=== PATIENT | female | born 1965 | race Caucasian/White ===

== ENCOUNTER 2018-08-11 09:47 | Emergency (ER) | payer OTHER, SELFPAY ==
[2018-08-11] MEDS ORDERED: IPRATROPIUM BROM 0.5MG/2.5ML ONE (10:29)
[2018-08-11] MEDS ORDERED: ALBUTEROL 2.5 MG/3 ML NEB SOL ONE (10:29)
[2018-08-11 10:59] LABS: BUN Blood Urea Nitrogen 9 mg/dL (7-18); Bicarbonate 27 mmol/L (21-32); Glucose Level 95 mg/dL (74-106); Potassium 3.9 mmol/L (3.5-5.1); Sodium Level 140 mmol/L (136-145)
[2018-08-11 11:00] LABS: Absolute Lymphocytes (CBC) 1.1 K/uL (0.7-4.9); Absolute Monocytes 0.9 K/uL (0.1-1.3); Absolute Neutrophil 4.7 K/uL (1.8-8.0); Basophils % 1.1 % (0-1.3); Eosinophils % 2.3 % (0-4.4); Hematocrit 42.4 % (36.0-45.0); MPV 9.9 fL (7.6-11.3); Monocytes % 13.4 % (3.3-12.3); RBC Red Blood Cell Count 4.53 M/uL (3.86-4.86)
--- NOTE | 2018-08-11 11:56 | RAD REPORT ---
EXAM DESCRIPTION: RAD - Chest Pa And Lat (2 Views) - 08/11/2018 11:48 am CLINICAL HISTORY: Dyspnea;Congestion;Fever Chest pain. COMPARISON: No comparisons TECHNIQUE: PA and lateral views of the chest were obtained. FINDINGS: The lungs are hyperexpanded compatible with COPD. The heart is upper limit of normal in si ze. No fracture or aggressive bony process. IMPRESSION: COPD without acute process identified.
--- NOTE | 2018-08-11 12:48 | ER ---
Nurse's Notes [facility] Name: Maria Del Carmen Darling Age: 53 yrs Sex: Female : 1965 Arrival Date: 08/11/2018 Time: 09:50 Bed 23 Private MD: None, None Diagnosis: Chronic obstructive pulmonary disease with acute lower respiratory infection Presentation: 08/11 09:55 Presenting complaint: Patient states: productive cough with clear sputum x 1 week ago. aa5 Pt also reports fever up to 102.0, reports taking Tylenol at 0730. Transition of care: patient was not received from another setting of care. Onset of symptoms was August 2018. Risk Assessment: Do you want to hurt yourself or someone else? Patient reports no desire to harm self or others. Care prior to arrival: None. 09:55 Method Of Arrival: Ambulatory aa5 09:55 Acuity: CHARANJIT 3 aa5 12:53 Initial Sepsis Screen: Does the patient meet any 2 criteria? No. Patient's initial aj sepsis screen is negative. Does the patient have a suspected source of infection? No. Patient's initial sepsis screen is negative. 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 - Social history:: Smoking status: Patient uses tobacco products, smokes one-half pack cigarettes per day. - Ebola Screening: : No symptoms or risks identified at this time. Screenin:30 Abuse screen: Denies threats or abuse. Denies injuries from another. Nutritional aj screening: No deficits noted. Tuberculosis screening: No symptoms or risk factors identified. Fall Risk None identified. Assessment: 10:30 General: Appears in no apparent distress. comfortable, Behavior is calm, cooperative, aj appropriate for age. Pain: Denies pain. Neuro: Level of Consciousness is awake, alert, obeys commands, Oriented to person, place, time, situation, Appropriate for age. Respiratory: Reports cough that is Airway is patent Respiratory effort is even, unlabored, Respiratory pattern is regular, symmetrical. Derm: Skin is intact, is healthy with good turgor, Skin is pink, warm \T\ dry. normal. 12:52 Reassessment: Patient appears in no apparent distress at this time. No changes from aj previously documented assessment. Patient and/or family updated on plan of care and expected duration. Pain level reassessed. Patient is alert, oriented x 3, equal unlabored respirations, skin warm/dry/pink. Patient states feeling better. Patient states symptoms have improved. Vital Signs: 09:57 BP 130 / 93; Pulse 106; Resp 18 S; Temp 99.2(O); Pulse Ox 96% on R/A; Weight 56.7 kg aa5 (R); Height 5 ft. 1 in. (154.94 cm) (R); Pain 8/10; 11:28 BP 101 / 65; Pulse 97; Resp 20; Pulse Ox 98% on R/A; aj 12:38 BP 104 / 66; Pulse 96; Resp 19; Pulse Ox 98% on R/A; aj 09:57 Body Mass Index 23.62 (56.70 kg, 154.94 cm) aa5 09:57 Pt c/o body aching aa5 ED Course: 09:50 Patient arrived in ED. mr 09:50 None, None is Private Physician. mr 09:56 Triage completed. aa5 09:56 Arm band placed on. aa5 09:58 Bisi German, RN is Primary Nurse. aj 10:06 Markell Simpson MD is Attending Physician. ma2 10:07 Satya Brandon PA is PHCP. jr8 10:30 Patient has correct armband on for positive identification. aj 10:30 Inserted saline lock: 20 gauge in right forearm, using aseptic technique. Blood aj collected. 10:34 Influenza Screen (a \T\ B) Sent. aj 10:34 Basic Metabolic Panel Sent. aj 10:34 CBC with Diff Sent. aj 11:49 XRAY Chest Pa And Lat (2 Views) In Process Unspecified. EDMS 12:52 No provider procedures requiring assistance completed. IV discontinued, intact, aj bleeding controlled, No redness/swelling at site. Pressure dressing applied. Administered Medications: 10:24 Drug: Albuterol 2.5 mg Route: Inhalation; aj 10:34 Follow up: Response: No adverse reaction; Marked relief of symptoms aj Outcome: 12:46 Discharge ordered by . brennan 12:52 Discharged to home ambulatory, with family. aj 12:52 Condition: good 12:52 Discharge instructions given to patient, family, Instructed on discharge instructions, follow up and referral plans. medication usage, Demonstrated understanding of instructions, follow-up care, medications, Prescriptions given X 3. 12:54 Patient left the ED. aj Signatures: Dispatcher [employer] EDBisi Irvin RN RN aj Rivera, Mary mr ClarkeCindi zhou RN RN aa5 Satya Brandon PA PA jr8 Markell Simpson MD MD ma2
--- NOTE | 2018-08-11 12:48 | EDPHYS ---
Physician Documentation [facility] Name: Maria Del Carmen Darling Age: 53 yrs Sex: Female : 1965 Arrival Date: 08/11/2018 Time: 09:50 Bed 23 Private MD: None, None ED Physician Markell Simpson HPI: 08/11 10:56 This 53 yrs old Female presents to ER via Ambulatory with complaints of jr8 Cough, Fever. 10:56 The patient or guardian reports cough, that is intermittent, described as moderate, jr8 with productive sputum, that is white, difficulty breathing. Onset: The symptoms/episode began/occurred acutely, 6 day(s) ago, and became worse. Severity of symptoms: At their worst the symptoms were moderate, in the emergency department the symptoms are unchanged. Modifying factors: The symptoms are alleviated by nothing, the symptoms are aggravated by nothing. Associated signs and symptoms: Pertinent positives: fever. The patient has not experienced similar symptoms in the past. The patient has not recently seen a physician. 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 - Social history:: Smoking status: Patient uses tobacco products, smokes one-half pack cigarettes per day. - Ebola Screening: : No symptoms or risks identified at this time. ROS: 10:56 Eyes: Negative for injury, pain, redness, and discharge, ENT: Negative for injury, jr8 pain, and discharge, Neck: Negative for injury, pain, and swelling, Cardiovascular: Negative for chest pain, palpitations, and edema, Abdomen/GI: Negative for abdominal pain, nausea, vomiting, diarrhea, and constipation, Back: Negative for injury and pain, MS/Extremity: Negative for injury and deformity, Skin: Negative for injury, rash, and discoloration, Neuro: Negative for headache, weakness, numbness, tingling, and seizure. 10:56 Respiratory: Positive for cough, with clear sputum, shortness of breath, wheezing. Exam: 10:56 Eyes: Pupils equal round and reactive to light, extra-ocular motions intact. Lids and jr8 lashes normal. Conjunctiva and sclera are non-icteric and not injected. Cornea within normal limits. Periorbital areas with no swelling, redness, or edema. ENT: Nares patent. No nasal discharge, no septal abnormalities noted. Tympanic membranes are normal and external auditory canals are clear. Oropharynx with no redness, swelling, or masses, exudates, or evidence of obstruction, uvula midline. Mucous membranes moist. Neck: Trachea midline, no thyromegaly or masses palpated, and no cervical lymphadenopathy. Supple, full range of motion without nuchal rigidity, or vertebral point tenderness. No Meningismus. Cardiovascular: Regular rate and rhythm with a normal S1 and S2. No gallops, murmurs, or rubs. Normal PMI, no JVD. No pulse deficits. Abdomen/GI: Soft, non-tender, with normal bowel sounds. No distension or tympany. No guarding or rebound. No evidence of tenderness throughout. Back: No spinal tenderness. No costovertebral tenderness. Full range of motion. Skin: Warm, dry with normal turgor. Normal color with no rashes, no lesions, and no evidence of cellulitis. MS/ Extremity: Pulses equal, no cyanosis. Neurovascular intact. Full, normal range of motion. Neuro: Awake and alert, GCS 15, oriented to person, place, time, and situation. Cranial nerves II-XII grossly intact. Motor strength 5/5 in all extremities. Sensory grossly intact. Cerebellar exam normal. Normal gait. 10:56 Respiratory: the patient does not display signs of respiratory distress, Respirations: normal, symetrical, no use of accessory muscles, no grunting, no evidence of nasal flaring, no prolonged exhalations, no pursed lip breathing, no retractions, no shallow respirations, no splinting, no tachypnea, Breath sounds: wheezing: expiratory that is mild, is heard in the left posterior upper lobe, left posterior lower lobe and right posterior lower lobe. Vital Signs: 09:57 BP 130 / 93; Pulse 106; Resp 18 S; Temp 99.2(O); Pulse Ox 96% on R/A; Weight 56.7 kg aa5 (R); Height 5 ft. 1 in. (154.94 cm) (R); Pain 8/10; 11:28 BP 101 / 65; Pulse 97; Resp 20; Pulse Ox 98% on R/A; aj 12:38 BP 104 / 66; Pulse 96; Resp 19; Pulse Ox 98% on R/A; aj 09:57 Body Mass Index 23.62 (56.70 kg, 154.94 cm) aa5 09:57 Pt c/o body aching aa5 MDM: 10:06 Patient medically screened. ma2 12:45 Data reviewed: vital signs, nurses notes, lab test result(s), radiologic studies, plain jr films, and as a result, I will discharge patient. Data interpreted: Pulse oximetry: on room air is 98 %. Interpretation: normal. Counseling: I had a detailed discussion with the patient and/or guardian regarding: the historical points, exam findings, and any diagnostic results supporting the discharge/admit diagnosis, lab results, radiology results, the need for outpatient follow up, a family practitioner, to return to the emergency department if symptoms worsen or persist or if there are any questions or concerns that arise at home. Response to treatment: the patient's symptoms have markedly improved after treatment. 08/11 10:16 Order name: CBC with Diff; Complete Time: 11:[address] [facility] 08/11 10:16 Order name: Basic Metabolic Panel; Complete Time: 11:08 8 08/11 10:16 Order name: XRAY Chest Pa And Lat (2 Views); Complete Time: 12:[address] [facility] 08/11 10:16 Order name: IV; Complete Time: 10:[address] [facility] 08/11 10:16 Order name: Influenza Screen (a \T\ B); Complete Time: 11: [facility] Administered Medications: 10:24 Drug: Albuterol 2.5 mg Route: Inhalation; aj 10:34 Follow up: Response: No adverse reaction; Marked relief of symptoms Disposition: 19:26 Co-signature as Attending Physician, Markell Simpson MD. [facility] Disposition: 08/11/18 12:46 Discharged to Home. Impression: Chronic obstructive pulmonary disease with acute lower respiratory infection. - Condition is Stable. - Discharge Instructions: Acute Bronchitis, Adult, Chronic Obstructive Pulmonary Disease. - Prescriptions for Prednisone 20 mg Oral Tablet - take 3 tablet by ORAL route once daily for 5 days; 15 tablet. Zithromax Z- Eder 250 mg Oral Tablet - take 1 tablet by ORAL route as directed for 5 days Day 1 - take two (2) tablets one time. Day 2, 3, 4 , 5 take one (1) tablet once daily.; 6 tablet. Guaifenesin AC 10- 100 mg/5 mL Oral Liquid - take 10 milliliter by ORAL route every 4 hours As needed; 240 milliliter. - Medication Reconciliation Form, Thank You Letter, Antibiotic Education, Prescription Opioid Use form. - Follow up: Private Physician; When: 2 - 3 days; Reason: Recheck today's complaints, Continuance of care, Re-evaluation by your physician. - Problem is new. - Symptoms have improved. Signatures: Dispatcher [employer] EDMS Bisi Germna RN RN aj Cindi Clarke RN RN aa5 Satya Brandon PA PA jr8 Markell Simpson MD MD ma2 Corrections: (The following items were deleted from the chart) 12:54 12:46 08/11/2018 12:46 Discharged to Home. Impression: Chronic obstructive pulmonary aj disease with acute lower respiratory infection. Condition is Stable. Forms are Medication Reconciliation Form, Thank You Letter, Antibiotic Education, Prescription Opioid Use. Follow up: Private Physician; When: 2 - 3 days; Reason: Recheck today's complaints, Continuance of care, Re-evaluation by your physician. Problem is new. Symptoms have improved. jr8
== END 2018-08-11 12:54 | disposition home or self-care (01) ==
LOC: ER 09:47
DX: J44.0 Chronic obstructive pulmonary disease with (acute) lower respiratory infection (principal); F17.210 Nicotine dependence, cigarettes, uncomplicated; Z88.0 Allergy status to penicillin; Z88.2 Allergy status to sulfonamides
CPT/HCPCS: 36415; 71046; 80048; 85025; 87804; 99284